=== PATIENT | female | born 1975 | race Caucasian/White ===

== ENCOUNTER → 2019-11-08 10:00 | Outpatient (BNVA) | payer MEDICAID, SELFPAY | PROVIDERS: Family Provider Internal Medicine; PCP Family Medicine; Visit Provider Internal Medicine | DX: E03.9 Hypothyroidism, unspecified (principal); K75.81 Nonalcoholic steatohepatitis (NASH); E78.5 Hyperlipidemia, unspecified; I10 Essential (primary) hypertension; R07.89 Other chest pain; I99.8 Other disorder of circulatory system; I50.42 Chronic combined systolic (congestive) and diastolic (congestive) heart failure; J44.9 Chronic obstructive pulmonary disease, unspecified; K21.9 Gastro-esophageal reflux disease without esophagitis; I73.9 Peripheral vascular disease, unspecified; Z72.0 Tobacco use | CPT/HCPCS: 80053; 80061; 84443; 85025 ==

== ENCOUNTER 2020-04-30 12:25 | Emergency (ER) | payer MEDICAID, SELFPAY ==
[2020-04-30 12:59] VITALS: BP 105/55; PULSE 92; RESP 16; TEMP 36.2; O2SAT 96; BMI 20.2
--- NOTE | 2020-04-30 13:08 | ED_ITS ---
Documented by User: Chucky Lundberg DO 05/06/20 13:04 HPI - GI Bleed General: Chief complaint: GI Bleed Stated complaint: vomiting blood Time Seen by Provider: 04/30/20 13:08 History of Present Illness: HPI Narrative: 45-year-old female presents emergency room complaining of feeling weak she is concerned she may need a blood transfusion. She is previously had multiple blood transfusions secondary to upper GI bleed 3 months ago she had endoscopy done upper GI showed ulcers. She was put on Dexilant she has been taking it regularly since then. Her last transfusion was nearly a year ago. She states she previously had a heart attack and has chronic orthopnea from PND and has not really changed at all recently she denies a chest pain she has some epigastric discomfort but no other abdominal pain. She denies fever sweats chills or respiratory symptoms. MD complaint: gross hematemesis Onset (ago): hour(s) Pain Consistency: constant Severity: moderate Relieving factors: none Exacerbating factors: none Context: history of GI bleed Associated symptoms: Reports abdominal pain; Denies chills, easy bruising, epistaxis, fever(s), headache(s), malaise, nausea, other bleeding, poor appetite, rash, syncope, vomiting or weakness Treatments Prior to Arrival: none Review of Systems Const: Denies: fever(s), chills or malaise ENMT: Denies: epistaxis Card: Denies: syncope Resp: Denies: dyspnea, productive cough or non-productive cough GI: Reports: abdominal pain; Denies: nausea or vomiting : Denies: flank pain, difficulty voiding, dysuria, urinary frequency or urinary urgency Skin/Breast: Denies: rash Neuro: Denies: headache(s) Dev/Lymph: Denies: easy bruising PFS ED PFSH: Medical History Chronic combined systolic (congestive) and diastolic (congestive) heart failure Chronic obstructive pulmonary disease, unspecified Essential (primary) hypertension GERD (gastroesophageal reflux disease) History of angiography X9 History of cerebral artery occlusion History of myocardial infarct at age less than 60 years History of stroke History of TIA (transient ischemic attack) Hyperlipidemia, unspecified Hypothyroidism, unspecified Peripheral vascular disease, unspecified Surgical History History of cardiac catheterization History of coronary artery bypass graft History of esophagogastroduodenoscopy (EGD) Family History Other Cancer Social History Smoking and tobacco status: current every day smoker Second hand smoke exposure: No Alcohol intake: never Substance/Drug Use: never Marital status: History of recent travel: No Current gender identity: Female Physical Exam Const: COMMON NORMALS: no acute distress GENERAL APPEARANCE: cooperative and comfortable ORIENTATION/CONSCIOUSNESS: Yes awake, Yes oriented to person, Yes oriented to place and Yes oriented to time HENMT: COMMON NORMALS: normocephalic, atraumatic and hearing grossly normal bilaterally HEAD & SCALP: normocephalic and atraumatic Eye: COMMON NORMALS: Equal, round and reactive pupils present, EOMs intact bilaterally, conjunctivae normal and no scleral icterus CONJUNCTIVA: Yes conjunctivae normal PUPIL: Yes Equal, round and reactive pupils present Neck/C-Spine: COMMON NORMALS: full ROM, no lymphadenopathy, supple and no JVD Lymph: LYMPHATIC: no lymphadenopathy noted and no lymphedema noted Resp: COMMON NORMALS: normal respiratory effort, No retractions, No use of accessory muscles and clear to auscultation bilaterally AUSCULTATION: clear to auscultation bilaterally Cardio: COMMON NORMALS: no JVD, regular rate, regular rhythm and No murmurs present (Cardio) RATE: regular rate RHYTHM: regular rhythm GI: COMMON NORMALS: Soft to palpation and No hepatosplenomegaly present AUSCULTATION: Yes normoactive bowel sounds PALPATION: Yes Soft to palpation, No Tenderness to palpation present (GI), No Guarding due to palpation present (GI) and Yes No hepatosplenomegaly present Extremity: COMMON NORMALS: normal to inspection, capillary refill normal, no clubbing, cyanosis or edema, no calf tenderness and no pedal edema Neuro: SENSORIUM/ORIENTATION: Yes oriented to person, Yes oriented to place and Yes oriented to time Skin: COMMON NORMALS: no rashes or lesions noted GENERAL SKIN EXAM: no rashes or lesions noted Course Vital Signs: Vital signs: Vital Signs Temperature 97.2 F L 04/30/20 12:59 Pulse Rate 80 04/30/20 19:01 Respiratory Rate 18 04/30/20 19:01 Blood Pressure 107/48 04/30/20 19:01 Pulse Oximetry 96 04/30/20 19:01 MDM - GI Bleed MDM Narrative: Medical decision making narrative: Care turned over to Dr. Be at change of shift Lab Data: Labs: Lab Results 04/30/20 04/30/20 04/30/20 Range/Units 14:15 14:15 14:15 WBC 14.6 H (4.0-10.0) 10^3/ uL RBC 4.40 (4.1-5.3) 10^6/u L Hgb 14.8 (11.5-15.3) g/dL Hct 43.8 (37.0-47.0) % MCV 99.5 H (81-99) fL MCH 33.6 (28.0-34.0) pg MCHC 33.8 (30.0-36.0) g/dL RDW 12.5 (12.1-15.1) % Plt Count 404 H (130-400) 10^3/c mm MPV 9.4 (7.4-10.4) fL Neut % (Auto) 89.4 % Lymph % (Auto) 6.3 % [place] % (Auto) 3.9 % Eos % (Auto) 0.0 % Baso % (Auto) 0.1 % Neut # (Auto) 13.00 H (1.8-7.7) 10^3/u L Lymph # (Auto) 0.9 (0.8-4.8) 10^3/u L [place] # (Auto) 0.6 (0.2-0.9) 10^3/u L Eos # (Auto) 0.0 (0.0-0.8) 10^3/u L Baso # (Auto) 0.0 (0.0-0.1) 10^3/u L Nucleated RBC % (a uto) 0 % Nucleated RBCs # 0.0 /100WBC PT Cancelled INR Cancelled APTT Cancelled Sodium 135 L (136-145) mmol/L Potassium 4.9 (3.5-5.1) mmol/L Chloride 95 L (98-107) mmol/L Carbon Dioxide 25 (22-29) mmol/L Anion Gap 19.9 H (5-19) BUN 36 H (6-20) mg/dL Creatinine 1.6 H (0.5-0.9) mg/dL GFR Calculation 34.6 L (90-130) mL/min Glucose 130 H (65-115) mg/dL Calculated Osmolal ity 279 L (285-295) mOsm/k g Calcium 9.7 (8.5-10.5) mg/dL Total Bilirubin 0.6 (0.15-1.2) mg/dL AST 24 (0-32) U/L ALT 11 (0-33) U/L Alkaline Phosphata se 80 (35-105) IU/L Troponin T Baselin e (0-10) ng/L Troponin T 120 Min [place] (0-10) ng/L Delta Troponin T (0-10) ABS# NT-Pro-B Natriuret Pep 1876 H (0-125) pg/mL Total Protein 8.6 (6.6-8.7) g/dL Albumin 4.9 (3.5-5.2) g/dL Globulin 3.7 (1.3-4.6) g/dL Lipase 18 (13-60) U/L Urine Color (Yellow) Urine Appearance (CLEAR) Urine pH (5-7) Ur Specific Gravit y (1.005-1.030) Urine Protein (Negative) Urine Glucose (UA) (Normal) Urine Ketones (Negative) Urine Blood (Negative) Urine Nitrate (Negative) Urine Bilirubin (NEGATIVE) Urine Urobilinogen (Negative) mg/dL Ur Leukocyte Brie [place]se (Negative) Urine RBC (0-2) /hpf Urine WBC (0-5) /hpf Ur Squamous Epith Cells (0-5) Ur Transition Epit h Cell /hpf Amorphous Sediment Urine Bacteria (NONE) Hyaline Casts 04/30/20 04/30/20 04/30/20 Range/Units 14:15 16:15 16:44 WBC (4.0-10.0) 10^3/ uL RBC (4.1-5.3) 10^6/u L Hgb (11.5-15.3) g/dL Hct (37.0-47.0) % MCV (81-99) fL MCH (28.0-34.0) pg MCHC (30.0-36.0) g/dL RDW (12.1-15.1) % Plt Count (130-400) 10^3/c mm MPV (7.4-10.4) fL Neut % (Auto) % Lymph % (Auto) % [place] % (Auto) % Eos % (Auto) % Baso % (Auto) % Neut # (Auto) (1.8-7.7) 10^3/u L Lymph # (Auto) (0.8-4.8) 10^3/u L [place] # (Auto) (0.2-0.9) 10^3/u L Eos # (Auto) (0.0-0.8) 10^3/u L Baso # (Auto) (0.0-0.1) 10^3/u L Nucleated RBC % (a uto) % Nucleated RBCs # /100WBC PT INR APTT Sodium (136-145) mmol/L Potassium (3.5-5.1) mmol/L Chloride (98-107) mmol/L Carbon Dioxide (22-29) mmol/L Anion Gap (5-19) BUN (6-20) mg/dL Creatinine (0.5-0.9) mg/dL GFR Calculation (90-130) mL/min Glucose (65-115) mg/dL Calculated Osmolal ity (285-295) mOsm/k g Calcium (8.5-10.5) mg/dL Total Bilirubin (0.15-1.2) mg/dL AST (0-32) U/L ALT (0-33) U/L Alkaline Phosphata se (35-105) IU/L Troponin T Baselin e 14 H (0-10) ng/L Troponin T 120 Min [place] 13.03 H (0-10) ng/L Delta Troponin T -0.97 L (0-10) ABS# NT-Pro-B Natriuret Pep (0-125) pg/mL Total Protein (6.6-8.7) g/dL Albumin (3.5-5.2) g/dL Globulin (1.3-4.6) g/dL Lipase (13-60) U/L Urine Color Yellow (Yellow) Urine Appearance Hazy A (CLEAR) Urine pH 5 (5-7) Ur Specific Gravit y 1.020 (1.005-1.030) Urine Protein Neg (Negative) Urine Glucose (UA) Norm (Normal) Urine Ketones Negative (Negative) Urine Blood Neg (Negative) Urine Nitrate Negative (Negative) Urine Bilirubin Neg (NEGATIVE) Urine Urobilinogen Norm (Negative) mg/dL Ur Leukocyte Brie [place]se Negative (Negative) Urine RBC 0-4 H (0-2) /hpf Urine WBC None (0-5) /hpf Ur Squamous Epith Cells 0-4 H (0-5) Ur Transition Epit h Cell 0-4 /hpf Amorphous Sediment Not Reportable Urine Bacteria 1+ H (NONE) Hyaline Casts 55-80 H 04/30/20 Range/Units 18:48 WBC (4.0-10.0) 10^3/ uL RBC (4.1-5.3) 10^6/u L Hgb (11.5-15.3) g/dL Hct (37.0-47.0) % MCV (81-99) fL MCH (28.0-34.0) pg MCHC (30.0-36.0) g/dL RDW (12.1-15.1) % Plt Count (130-400) 10^3/c mm MPV (7.4-10.4) fL Neut % (Auto) % Lymph % (Auto) % [place] % (Auto) % Eos % (Auto) % Baso % (Auto) % Neut # (Auto) (1.8-7.7) 10^3/u L Lymph # (Auto) (0.8-4.8) 10^3/u L [place] # (Auto) (0.2-0.9) 10^3/u L Eos # (Auto) (0.0-0.8) 10^3/u L Baso # (Auto) (0.0-0.1) 10^3/u L Nucleated RBC % (a uto) % Nucleated RBCs # /100WBC PT 13.70 INR 1.02 APTT 30.7 Sodium (136-145) mmol/L Potassium (3.5-5.1) mmol/L Chloride (98-107) mmol/L Carbon Dioxide (22-29) mmol/L Anion Gap (5-19) BUN (6-20) mg/dL Creatinine (0.5-0.9) mg/dL GFR Calculation (90-130) mL/min Glucose (65-115) mg/dL Calculated Osmolal ity (285-295) mOsm/k g Calcium (8.5-10.5) mg/dL Total Bilirubin (0.15-1.2) mg/dL AST (0-32) U/L ALT (0-33) U/L Alkaline Phosphata se (35-105) IU/L Troponin T Baselin e (0-10) ng/L Troponin T 120 Min [place] (0-10) ng/L Delta Troponin T (0-10) ABS# NT-Pro-B Natriuret Pep (0-125) pg/mL Total Protein (6.6-8.7) g/dL Albumin (3.5-5.2) g/dL Globulin (1.3-4.6) g/dL Lipase (13-60) U/L Urine Color (Yellow) Urine Appearance (CLEAR) Urine pH (5-7) Ur Specific Gravit y (1.005-1.030) Urine Protein (Negative) Urine Glucose (UA) (Normal) Urine Ketones (Negative) Urine Blood (Negative) Urine Nitrate (Negative) Urine Bilirubin (NEGATIVE) Urine Urobilinogen (Negative) mg/dL Ur Leukocyte Brie ase (Negative) Urine RBC (0-2) /hpf Urine WBC (0-5) /hpf Ur Squamous Epith Cells (0-5) Ur Transition Epit h Cell /hpf Amorphous Sediment Urine Bacteria (NONE) Hyaline Casts Discharge Plan Discharge Patient Disposition: Home Clinical Impression: Upper gastrointestinal hemorrhage Abdominal pain Qualifiers: Abdominal location: epigastric Qualified Code(s): R10.13 - Epigastric pain Condition: Stable Prescriptions: New Zofran 4 mg tablet 4 mg PO Q6H PRN (Reason: nausea and vomiting) Qty: 20 RF: 0 No Action amlodipine 2.5 mg tablet 2.5 mg PO DAILY Qty: 90 RF: 3 Repatha SureClick 140 mg/mL pen injector 140 mg SUBCUT .every 14 days Qty: 2 RF: 0 lidocaine 5 % adhesive patch,medicated 1 patch TOPICAL DAILY Qty: 30 RF: 0 cyclobenzaprine 10 mg tablet 10 mg PO TID MDD 3 PRN (Reason: muscle spasm) Qty: 90 RF: 1 magnesium 200 mg tablet 200 mg PO DAILY Qty: 90 RF: 3 nitroglycerin 0.4 mg tablet, sublingual 0.4 mg SUBLINGUAL Q5M PRN (Reason: chest pain) Qty: 30 RF: 3 cholecalciferol (vitamin D3) 1,250 mcg (50,000 unit) capsule 50,000 unit PO .COMPLEX 30 Days Qty: 4 RF: 3 lisinopril 5 mg tablet 5 mg PO BID Qty: 60 RF: 3 folic acid 1 mg tablet 1 mg PO DAILY Qty: 30 RF: 3 ferrous sulfate 325 mg (65 mg iron) tablet 325 mg PO ONCE Qty: 30 RF: 3 loratadine 10 mg tablet 10 mg PO DAILY Qty: 30 RF: 3 isosorbide mononitrate 60 mg tablet extended release 24 hr 60 mg PO QAM MDD 1 30 Days Qty: 30 RF: 3 levothyroxine 100 mcg capsule 100 mcg PO DAILY 30 Days Qty: 30 RF: 3 furosemide 20 mg tablet 20 mg PO BID Qty: 60 RF: 3 fenofibrate nanocrystallized 145 mg tablet 145 mg PO DAILY 30 Days Qty: 30 RF: 3 montelukast 10 mg tablet 10 mg PO DAILY MDD 1 Qty: 30 RF: 3 Percocet 10-325 mg Tablet 1 tab PO Q4H PRN (Reason: Pain) RF: 0 clopidogrel 75 mg tablet 75 mg PO DAILY MDD 1 RF: 0 Dexilant 60 mg capsule,biphase delayed releas 60 mg PO DAILY RF: 0 metoprolol succinate 200 mg capsule,sprinkle,ER 24hr 100 mg PO BID RF: 0 Discharge Orders: Discharge Order (Routine); Ordered 04/30/20 Ordered By: Judy Hayden Referrals: Adam Mohr MD [Physician] - 1-3 days (Call Dr. Mohr's office for an appointment to be seen in the next 1 to 2 days for recheck.) Ambrocio Vicente MD [Primary Care Provider] - Discharge Diet: Advance as tolerated and Clear Liquid Discharge Activity: Increase activity as tolerated Patient Instructions: Abdominal Pain (ED) Activity Restrictions/Additional Instructions: Please return to the ER immediately for any of the signs or symptoms listed on your discharge instruction sheets, worsening/changing of your symptoms, you are not getting better as quickly as expected, or for ANY other cause or concerns. Follow a clear liquid diet and take your medicines as I have prescribed. Be certain to follow-up with Dr. Mohr tomorrow or . If for any reason you are unable to be seen by him return here to the ER for recheck. Discharge Date/Time: 04/30/20 19:02 Sign Out Sign Out Data: Patient Sign Out occurred on 04/30/20 at 18:05. Patient's care was discussed, and care was transferred from to Judy Hayden. Coding Level of Care Code ED Antenna Machine Operator for Chg Fwd Exam Comprehensive Documented by User: Judy Hayden 04/30/20 19:16 HPI - GI Bleed General: Chief complaint: GI Bleed Stated complaint: vomiting blood Time Seen by Provider: 04/30/20 13:08 PFSH ED PFSH: Medical History Chronic combined systolic (congestive) and diastolic (congestive) heart failure Chronic obstructive pulmonary disease, unspecified Essential (primary) hypertension GERD (gastroesophageal reflux disease) History of angiography X9 History of cerebral artery occlusion History of myocardial infarct at age less than 60 years History of stroke History of TIA (transient ischemic attack) Hyperlipidemia, unspecified Hypothyroidism, unspecified Peripheral vascular disease, unspecified Surgical History History of cardiac catheterization History of coronary artery bypass graft History of esophagogastroduodenoscopy (EGD) Family History Other Cancer Social History Smoking and tobacco status: current every day smoker Second hand smoke exposure: No Alcohol intake: never Substance/Drug Use: never Marital status: History of recent travel: No Current gender identity: Female Course Vital Signs: Vital signs: Vital Signs Temperature 97.2 F L 04/30/20 12:59 Pulse Rate 80 04/30/20 19:01 Respiratory Rate 18 04/30/20 19:01 Blood Pressure 107/48 04/30/20 19:01 Pulse Oximetry 96 04/30/20 19:01 MDM - GI Bleed MDM Narrative: Medical decision making narrative: Reji is a nice 45-year-old female signed out to me from Dr. Lundberg. Please see his note for his history, physical exam and medical decision-making notes. Patient has not had any hematic emesis here. By report the patient has not had a melanotic stools. Hem oglobin is 14. Patient appears mildly dehydrated and I will give her a liter of normal saline before leaving. She does not want to stay for this but after some insistence by myself and her daughter she agrees to stay. Her CT scan is unremarkable. She states that she can easily get an appointment with Dr. Mohr and wants to do so tomorrow. Her pain is more lower epigastric and periumbilical in location. She has not had any chest pain. There is no sign of peritonitis on exam and the patient is at this time is asking to go home. She agrees to return should her symptoms change or worsen otherwise she will follow- up with Dr. Mohr. I will give her Zofran at home so she can tolerate eating better. Patient has no other requests and agrees to follow-up as directed or return if she cannot get into see him. Lab Data: Attestation: I reviewed the patient's lab results. Labs: Lab Results 04/30/20 04/30/20 04/30/20 Range/Units 14:15 14:15 14:15 WBC 14.6 H (4.0-10.0) 10^3/ uL RBC 4.40 (4.1-5.3) 10^6/u L Hgb 14.8 (11.5-15.3) g/dL Hct 43.8 (37.0-47.0) % MCV 99.5 H (81-99) fL MCH 33.6 (28.0-34.0) pg MCHC 33.8 (30.0-36.0) g/dL RDW 12.5 (12.1-15.1) % Plt Count 404 H (130-400) 10^3/c mm MPV 9.4 (7.4-10.4) fL Neut % (Auto) 89.4 % Lymph % (Auto) 6.3 % [place] % (Auto) 3.9 % Eos % (Auto) 0.0 % Baso % (Auto) 0.1 % Neut # (Auto) 13.00 H (1.8-7.7) 10^3/u L Lymph # (Auto) 0.9 (0.8-4.8) 10^3/u L [place] # (Auto) 0.6 (0.2-0.9) 10^3/u L Eos # (Auto) 0.0 (0.0-0.8) 10^3/u L Baso # (Auto) 0.0 (0.0-0.1) 10^3/u L Nucleated RBC % (a uto) 0 % Nucleated RBCs # 0.0 /100WBC PT Cancelled INR Cancelled APTT Cancelled Sodium 135 L (136-145) mmol/L Potassium 4.9 (3.5-5.1) mmol/L Chloride 95 L (98-107) mmol/L Carbon Dioxide 25 (22-29) mmol/L Anion Gap 19.9 H (5-19) BUN 36 H (6-20) mg/dL Creatinine 1.6 H (0.5-0.9) mg/dL GFR Calculation 34.6 L (90-130) mL/min Glucose 130 H (65-115) mg/dL Calculated Osmolal ity 279 L (285-295) mOsm/k g Calcium 9.7 (8.5-10.5) mg/dL Total Bilirubin 0.6 (0.15-1.2) mg/dL AST 24 (0-32) U/L ALT 11 (0-33) U/L Alkaline Phosphata se 80 (35-105) IU/L Troponin T Baselin e (0-10) ng/L Troponin T 120 Min [place] (0-10) ng/L Delta Troponin T (0-10) ABS# NT-Pro-B Natriuret Pep 1876 H (0-125) pg/mL Total Protein 8.6 (6.6-8.7) g/dL Albumin 4.9 (3.5-5.2) g/dL Globulin 3.7 (1.3-4.6) g/dL Lipase 18 (13-60) U/L Urine Color (Yellow) Urine Appearance (CLEAR) Urine pH (5-7) Ur Specific Gravit y (1.005-1.030) Urine Protein (Negative) Urine Glucose (UA) (Normal) Urine Ketones (Negative) Urine Blood (Negative) Urine Nitrate (Negative) Urine Bilirubin (NEGATIVE) Urine Urobilinogen (Negative) mg/dL Ur Leukocyte Brie [place]se (Negative) Urine RBC (0-2) /hpf Urine WBC (0-5) /hpf Ur Squamous Epith Cells (0-5) Ur Transition Epit h Cell /hpf Amorphous Sediment Urine Bacteria (NONE) Hyaline Casts 04/30/20 04/30/20 04/30/20 Range/Units 14:15 16:15 16:44 WBC (4.0-10.0) 10^3/ uL RBC (4.1-5.3) 10^6/u L Hgb (11.5-15.3) g/dL Hct (37.0-47.0) % MCV (81-99) fL MCH (28.0-34.0) pg MCHC (30.0-36.0) g/dL RDW (12.1-15.1) % Plt Count (130-400) 10^3/c mm MPV (7.4-10.4) fL Neut % (Auto) % Lymph % (Auto) % [place] % (Auto) % Eos % (Auto) % Baso % (Auto) % Neut # (Auto) (1.8-7.7) 10^3/u L Lymph # (Auto) (0.8-4.8) 10^3/u L [place] # (Auto) (0.2-0.9) 10^3/u L Eos # (Auto) (0.0-0.8) 10^3/u L Baso # (Auto) (0.0-0.1) 10^3/u L Nucleated RBC % (a uto) % Nucleated RBCs # /100WBC PT INR APTT Sodium (136-145) mmol/L Potassium (3.5-5.1) mmol/L Chloride (98-107) mmol/L Carbon Dioxide (22-29) mmol/L Anion Gap (5-19) BUN (6-20) mg/dL Creatinine (0.5-0.9) mg/dL GFR Calculation (90-130) mL/min Glucose (65-115) mg/dL Calculated Osmolal ity (285-295) mOsm/k g Calcium (8.5-10.5) mg/dL Total Bilirubin (0.15-1.2) mg/dL AST (0-32) U/L ALT (0-33) U/L Alkaline Phosphata se (35-105) IU/L Troponin T Baselin e 14 H (0-10) ng/L Troponin T 120 Min [place] 13.03 H (0-10) ng/L Delta Troponin T -0.97 L (0-10) ABS# NT-Pro-B Natriuret Pep (0-125) pg/mL Total Protein (6.6-8.7) g/dL Albumin (3.5-5.2) g/dL Globulin (1.3-4.6) g/dL Lipase (13-60) U/L Urine Color Yellow (Yellow) Urine Appearance Hazy A (CLEAR) Urine pH 5 (5-7) Ur Specific Gravit y 1.020 (1.005-1.030) Urine Protein Neg (Negative) Urine Glucose (UA) Norm (Normal) Urine Ketones Negative (Negative) Urine Blood Neg (Negative) Urine Nitrate Negative (Negative) Urine Bilirubin Neg (NEGATIVE) Urine Urobilinogen Norm (Negative) mg/dL Ur Leukocyte Brie [place] Negative (Negative) Urine RBC 0-4 H (0-2) /hpf Urine WBC None (0-5) /hpf Ur Squamous Epith Cells 0-4 H (0-5) Ur Transition Epit h Cell 0-4 /hpf Amorphous Sediment Not Reportable Urine Bacteria 1+ H (NONE) Hyaline Casts 55-80 H 04/30/20 Range/Units 18:48 WBC (4.0-10.0) 10^3/ uL RBC (4.1-5.3) 10^6/u L Hgb (11.5-15.3) g/dL Hct (37.0-47.0) % MCV (81-99) fL MCH (28.0-34.0) pg MCHC (30.0-36.0) g/dL RDW (12.1-15.1) % Plt Count (130-400) 10^3/c mm MPV (7.4-10.4) fL Neut % (Auto) % Lymph % (Auto) % [place] % (Auto) % Eos % (Auto) % Baso % (Auto) % Neut # (Auto) (1.8-7.7) 10^3/u L Lymph # (Auto) (0.8-4.8) 10^3/u L [place] # (Auto) (0.2-0.9) 10^3/u L Eos # (Auto) (0.0-0.8) 10^3/u L Baso # (Auto) (0.0-0.1) 10^3/u L Nucleated RBC % (a uto) % Nucleated RBCs # /100WBC PT 13.70 INR 1.02 APTT 30.7 Sodium (136-145) mmol/L Potassium (3.5-5.1) mmol/L Chloride (98-107) mmol/L Carbon Dioxide (22-29) mmol/L Anion Gap (5-19) BUN (6-20) mg/dL Creatinine (0.5-0.9) mg/dL GFR Calculation (90-130) mL/min Glucose (65-115) mg/dL Calculated Osmolal ity (285-295) mOsm/k g Calcium (8.5-10.5) mg/dL Total Bilirubin (0.15-1.2) mg/dL AST (0-32) U/L ALT (0-33) U/L Alkaline Phosphata se (35-105) IU/L Troponin T Baselin e (0-10) ng/L Troponin T 120 Min [place] (0-10) ng/L Delta Troponin T (0-10) ABS# NT-Pro-B Natriuret Pep (0-125) pg/mL Total Protein (6.6-8.7) g/dL Albumin (3.5-5.2) g/dL Globulin (1.3-4.6) g/dL Lipase (13-60) U/L Urine Color (Yellow) Urine Appearance (CLEAR) Urine pH (5-7) Ur Specific Gravit y (1.005-1.030) Urine Protein (Negative) Urine Glucose (UA) (Normal) Urine Ketones (Negative) Urine Blood (Negative) Urine Nitrate (Negative) Urine Bilirubin (NEGATIVE) Urine Urobilinogen (Negative) mg/dL Ur Leukocyte Brie ase (Negative) Urine RBC (0-2) /hpf Urine WBC (0-5) /hpf Ur Squamous Epith Cells (0-5) Ur Transition Epit h Cell /hpf Amorphous Sediment Urine Bacteria (NONE) Hyaline Casts Imaging Data^: CT Abd/Pel: Radiologist's impression: [address] [address] [address] Scan Report Signed Patient: Reji Broussard IUnit #: [id number] : 1975Acct#:[id number] Age/Sex: 45 / FADM Date: 04/30/20 Loc: ERRoom/Bed: Attending Dr: Ordering Provider/Ordering MD: Chucky Lundberg DO Date of Service: 04/30/20 Procedure(s): CT abdomen pelvis w con* [id number] Accession Number(s): [id number] Report Number: [id number] PROCEDURE INFORMATION: Exam: CT Abdomen And Pelvis With Contrast Exam date and time: 04/30/2020 3:06 PM Age: 45 years old Clinical indication: Nausea and vomiting; Abdominal pain; Prior surgery; Surgery type: Bypass, egd; Additional info: Abd pain TECHNIQUE: Imaging protocol: Computed tomography of the abdomen and pelvis with intravenous contrast. Radiation optimization: All CT scans at this facility use at least one of these dose optimization techniques: automated exposure control; mA and/or kV adjustment per patient size (includes targeted exams where dose is matched to clinical indication); or iterative reconstruction. Contrast material: VISI 320; Contrast volume: 75 ml; Contrast route: INTRAVENOUS (IV); COMPARISON: No relevant prior studies available. RADIATION DOSE METRICS: Total DLP (mGy-cm): 324.82 FINDINGS: Liver: No mass. Gallbladder and bile ducts: No gallstones. Minimal nonspecific gallbladder wall thickening. No ductal dilation. Pancreas: Normal. No ductal dilation. Spleen: Normal. No splenomegaly. Adrenals: Normal. No mass. Kidneys and ureters: No calculus or hydronephrosis. No mass. Stomach and bowel: No acute findings. No obstruction. No mucosal thickening. Appendix: No evidence of appendicitis. Intraperitoneal space: Unremarkable. No free air. No significant fluid collection. Vasculature: No abdominal aortic aneurysm. Vascular calcifications. Lymph nodes: No significant adenopathy. Bladder: Unremarkable as visualized. Reproductive: Unremarkable as visualized. Bones/joints: No acute findings. Sternotomy. Soft tissues: Unremarkable. CT/CT abdomen pelvis w con* [id number] IMPRESSION: No acute findings. Radiation Dose CTDIVOL = (mGy): DLP = 324.82 (mGy-cm) Dictated By:Hitesh Cai MD Signed By:Hitesh Cai MDSigned Date/Time:04/30/201757 DD/ 56 EKG Data^: EKG 1: Attestation: I personally reviewed and interpreted this EKG as follows: EKG interpretation date: 04/30/20 EKG interpretation time: 14:01 Interpretation: Normal sinus rhythm at 83 beats a minute, nonspecific ST-T wave changes similar to previous. EKG 2: Attestation: I personally reviewed and interpreted this EKG as follows: EKG interpretation date: 04/30/20 EKG interpretation time: 16:50 Interpretation: Normal sinus rhythm at 83 beats a minute, nonspecific ST and T wave changes similar to previous. Discharge Plan Discharge Patient Disposition: Home Clinical Impression: Upper gastrointestinal hemorrhage Abdominal pain Qualifiers: Abdominal location: epigastric Qualified Code(s): R10.13 - Epigastric pain Condition: Stable Prescriptions: New Zofran 4 mg tablet 4 mg PO Q6H PRN (Reason: nausea and vomiting) Qty: 20 RF: 0 No Action amlodipine 2.5 mg tablet 2.5 mg PO DAILY Qty: 90 RF: 3 Repatha SureClick 140 mg/mL pen injector 140 mg SUBCUT .every 14 days Qty: 2 RF: 0 lidocaine 5 % adhesive patch,medicated 1 patch TOPICAL DAILY Qty: 30 RF: 0 cyclobenzaprine 10 mg tablet 10 mg PO TID MDD 3 PRN (Reason: muscle spasm) Qty: 90 RF: 1 magnesium 200 mg tablet 200 mg PO DAILY Qty: 90 RF: 3 nitroglycerin 0.4 mg tablet, sublingual 0.4 mg SUBLINGUAL Q5M PRN (Reason: chest pain) Qty: 30 RF: 3 cholecalciferol (vitamin D3) 1,250 mcg (50,000 unit) capsule 50,000 unit PO .COMPLEX 30 Days Qty: 4 RF: 3 lisinopril 5 mg tablet 5 mg PO BID Qty: 60 RF: 3 folic acid 1 mg tablet 1 mg PO DAILY Qty: 30 RF: 3 ferrous sulfate 325 mg (65 mg iron) tablet 325 mg PO ONCE Qty: 30 RF: 3 loratadine 10 mg tablet 10 mg PO DAILY Qty: 30 RF: 3 isosorbide mononitrate 60 mg tablet extended release 24 hr 60 mg PO QAM MDD 1 30 Days Qty: 30 RF: 3 levothyroxine 100 mcg capsule 100 mcg PO DAILY 30 Days Qty: 30 RF: 3 furosemide 20 mg tablet 20 mg PO BID Qty: 60 RF: 3 fenofibrate nanocrystallized 145 mg tablet 145 mg PO DAILY 30 Days Qty: 30 RF: 3 montelukast 10 mg tablet 10 mg PO DAILY MDD 1 Qty: 30 RF: 3 Percocet 10-325 mg Tablet 1 tab PO Q4H PRN (Reason: Pain) RF: 0 clopidogrel 75 mg tablet 75 mg PO DAILY MDD 1 RF: 0 Dexilant 60 mg capsule,biphase delayed releas 60 mg PO DAILY RF: 0 metoprolol succinate 200 mg capsule,sprinkle,ER 24hr 100 mg PO BID RF: 0 Discharge Orders: Discharge Order (Routine); Ordered 04/30/20 Ordered By: Judy Hayden Referrals: Adam Mohr MD [Physician] - 1-3 days (Call Dr. Mohr's office for an appointment to be seen in the next 1 to 2 days for recheck.) Ambrocio Vicente MD [Primary Care Provider] - Discharge Diet: Advance as tolerated and Clear Liquid Discharge Activity: Increase activity as tolerated Patient Instructions: Abdominal Pain (ED) Activity Restrictions/Additional Instructions: Please return to the ER immediately for any of the signs or symptoms listed on your discharge instruction sheets, worsening/changing of your symptoms, you are not getting better as quickly as expected, or for ANY other cause or concerns. Follow a clear liquid diet and take your medicines as I have prescribed. Be certain to follow-up with Dr. Mohr tomorrow or . If for any reason you are unable to be seen by him return here to the ER for recheck. Discharge Date/Time: 04/30/20 19:02 Sign Out Sign Out Data: Patient Sign Out occurred on 04/30/20 at 18:05. Patient's care was discussed, and care was transferred from to Judy Hayden. Coding Level of Care Code ED Antenna Machine Operator for Chg Fwd Exam Comprehensive
--- NOTE | 2020-04-30 13:44 | XRR_ITS ---
PROCEDURE INFORMATION: Exam: XR Chest, 1 View Exam date and time: 04/30/2020 1:57 PM Age: 45 years old Clinical indication: Cough and dyspnea; Prior surgery; Surgery type: Triple bypass 2014; Patient HX: Vomiting; Additional info: Dyspnea/cough TECHNIQUE: Imaging protocol: XR of the chest Views: 1 view. COMPARISON: CT chest con [id number] 11/08/2017 3:10 PM FINDINGS: Lungs: No CHF. No consolidation. Pleural space: Unremarkable. No pleural effusion. No pneumothorax. Heart/Mediastinum: CABG. No cardiomegaly. Bones/joints: No acute findings. Sternotomy. XR/XR chest 1V portable [id number] IMPRESSION: No acute findings.
--- NOTE | 2020-04-30 13:45 | ECG_ITS ---
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 Measurements Intervals [place] Rate: 83 P: 69 MT: 154 QRS: 85 QRSD: 93 T: 98 QT: 382 QTc: 450 Interpretive Statements SINUS RHYTHM RIGHT ATRIAL ENLARGEMENT [0.3mV P WAVE] LEFT ATRIAL ENLARGEMENT [-0.15mV P WAVE IN V1/V2] NONSPECIFIC ST & T-WAVE ABNORMALITY Compared to ECG 03/17/2019 09:30:52 Atrial abnormality now present Sinus arrhythmia no longer present T-wave abnormality still present Electronically Signed On 05-01-2020 0:29:10 CDT by Henrry Bower M.D. [id number]
[2020-04-30 14:23] LABS: Basophils % 0.1 %; Hematocrit 43.8 % (37.0-47.0); Hemoglobin 14.8 g/dL (11.5-15.3); Lymphocytes # 0.9 10^3/uL (0.8-4.8); Lymphocytes % 6.3 %; Mean Corpuscular HGB Conc 33.8 g/dL (30.0-36.0); Mean Corpuscular Hemoglobin 33.6 pg (28.0-34.0); Mean Corpuscular Volume 99.5 fL (81-99); Mean Platelet Volume 9.4 fL (7.4-10.4); Monocytes # 0.6 10^3/uL (0.2-0.9); Monocytes % 3.9 %; Neutrophils % 89.4 %; Nucleated Red Blood Cells % 0 %; Platelet Count 404 10^3/cmm (130-400); Red Cell Distribution Width 12.5 % (12.1-15.1); White Blood Count 14.6 10^3/uL (4.0-10.0)
[2020-04-30 14:43] LABS: Troponin(5th) Baseline 14 ng/L (0-10)
--- NOTE | 2020-04-30 14:45 | CTR_ITS ---
PROCEDURE INFORMATION: Exam: CT Abdomen And Pelvis With Contrast Exam date and time: 04/30/2020 3:06 PM Age: 45 years old Clinical indication: Nausea and vomiting; Abdominal pain; Prior surgery; Surgery type: Bypass, egd; Additional info: Abd pain TECHNIQUE: Imaging protocol: Computed tomography of the abdomen and pelvis with intravenous contrast. Radiation optimization: All CT scans at this facility use at least one of these dose optimization techniques: automated exposure control; mA and/or kV adjustment per patient size (includes targeted exams where dose is matched to clinical indication); or iterative reconstruction. Contrast material: VISI 320; Contrast volume: 75 ml; Contrast route: INTRAVENOUS (IV); COMPARISON: No relevant prior studies available. RADIATION DOSE METRICS: Total DLP (mGy-cm): 324.82 FINDINGS: Liver: No mass. Gallbladder and bile ducts: No gallstones. Minimal nonspecific gallbladder wall thickening. No ductal dilation. Pancreas: Normal. No ductal dilation. Spleen: Normal. No splenomegaly. Adrenals: Normal. No mass. Kidneys and ureters: No calculus or hydronephrosis. No mass. Stomach and bowel: No acute findings. No obstruction. No mucosal thickening. Appendix: No evidence of appendicitis. Intraperitoneal space: Unremarkable. No free air. No significant fluid collection. Vasculature: No abdominal aortic aneurysm. Vascular calcifications. Lymph nodes: No significant adenopathy. Bladder: Unremarkable as visualized. Reproductive: Unremarkable as visualized. Bones/joints: No acute findings. Sternotomy. Soft tissues: Unremarkable. CT/CT abdomen pelvis w con* [id number] IMPRESSION: No acute findings. Radiation Dose CTDIVOL = (mGy): DLP = 324.82 (mGy-cm)
[2020-04-30 14:53] LABS: Alanine Aminotransferase 11 U/L (0-33); Albumin Level 4.9 g/dL (3.5-5.2); Alkaline Phosphatase 80 IU/L (35-105); Anion Gap 19.9 (5-19); Aspartate Amino Transferase 24 U/L (0-32); Blood Urea Nitrogen 36 mg/dL (6-20); Calcium 9.7 mg/dL (8.5-10.5); Carbon Dioxide 25 mmol/L (22-29); Chloride 95 mmol/L (98-107); Globulin 3.7 g/dL (1.3-4.6); Glomerular Filtration Rate 34.6 mL/min (90-130); Glucose 130 mg/dL (65-115); Lipase 18 U/L (13-60); NT Pro B Type Natriuretic Pept 1876 pg/mL (0-125); Osmolality Calculated 279 mOsm/kg (285-295); Potassium 4.9 mmol/L (3.5-5.1); Sodium 135 mmol/L (136-145); Total Bilirubin 0.6 mg/dL (0.15-1.2); Total Protein 8.6 g/dL (6.6-8.7)
[2020-04-30] MEDS: ondansetron 2 mg/ML SDV 2 mL 4 MG IVP (15:22)
[2020-04-30] MEDS: hydrocortisone inj 100 MG in sodium chloride 0.9% (100 ml) 100 ML 200 MG IV (16:20)
[2020-04-30] MEDS: diphenhydrAMINE 50 mg/mL SDV 1mL IVP (16:20)
[2020-04-30 16:38] LABS: Troponin 5 2HR 13.03 ng/L (0-10)
[2020-04-30 16:39] LABS: Troponin 5 2HR Delta -0.97 ABS# (0-10)
[2020-04-30 16:56] LABS: Add Urine Microscopic? YES; Bilirubin Urine Neg (NEGATIVE); Blood Urine Neg (Negative); Glucose Urine UA Norm (Normal); Ketones Urine Negative (Negative); Leukocyte Esterase Urine Negative (Negative); Nitrate Urine Negative (Negative); Protein Urine Neg (Negative); Urine Appearance Hazy (CLEAR); Urine Color Yellow (Yellow); Urobilinogen Urine Norm (Negative); pH Urine 5 (5-7)
[2020-04-30 17:06] LABS: Hyaline Casts Urine 55-80
[2020-04-30 17:07] LABS: Add Urine Culture? No; Bacteria Urine 1+; RBC Urine 0-4 /hpf (0-2); Squamous Epithelial Cell Urine 0-4 (0-5); Transitional Epi Cells Urine 0-4 /hpf
[2020-04-30] MEDS: iodixanol 320 mg/mL 100mL Btl IV (17:30)
[2020-04-30] MEDS: lidocaine 2% viscous 15 ML, aluminum-mag hydrox-simethicon 30 ML, sucralfate oral liq 1 GM PO (18:05)
[2020-04-30 19:01] VITALS: BP 107/48; PULSE 80; RESP 18; O2SAT 96
[2020-04-30 19:20] LABS: INR 1.02 (0.8-1.2)
[2020-04-30 19:21] LABS: Partial Thromboplastin Time 30.7 SECONDS (23.9-36.7)
== END 2020-04-30 19:02 | disposition home or self-care (01) ==
PROVIDERS: Family Medicine; Emergency Provider Emergency Medicine; PCP Family Medicine
DX: K92.2 Gastrointestinal hemorrhage, unspecified (principal); R10.13 Epigastric pain; Z79.02 Long term (current) use of antithrombotics/antiplatelets; J44.9 Chronic obstructive pulmonary disease, unspecified; I11.0 Hypertensive heart disease with heart failure; I50.42 Chronic combined systolic (congestive) and diastolic (congestive) heart failure; I25.2 Old myocardial infarction; Z86.73 Personal history of transient ischemic attack (TIA), and cerebral infarction without residual deficits; E78.5 Hyperlipidemia, unspecified; Z95.1 Presence of aortocoronary bypass graft; F17.210 Nicotine dependence, cigarettes, uncomplicated
CPT/HCPCS: 12345; 36415; 71045; 74177; 80053; 81001; 83690; 83880; 84484; 85025; 85610; 85730; 93005; 96374; 96375; 99283; 99284; J1200; J1720; J2405; Q9967

== ENCOUNTER 2020-07-25 11:54 | Outpatient (CLI) | payer MEDICAID, SELFPAY ==
[2020-07-25 12:51] LABS: Alanine Aminotransferase 15 U/L (0-33); Albumin Level 4.4 g/dL (3.5-5.2); Alkaline Phosphatase 85 IU/L (35-105); Anion Gap 16.3 (5-19); Aspartate Amino Transferase 24 U/L (0-32); Blood Urea Nitrogen 24 mg/dL (6-20); Carbon Dioxide 26 mmol/L (22-29); Chloride 102 mmol/L (98-107); Chol HDL Ratio 4.47 mg/dL (0.0-4.40); Cholesterol 161 mg/dL (0-200); Globulin 3.2 g/dL (1.3-4.6); Glomerular Filtration Rate 43.9 mL/min (90-130); Glucose 88 mg/dL (65-115); HDL Cholesterol 36 mg/dL (60-100); LDL Cholesterol Calculated 75 mg/dL (50-129); LDL HDL Ratio 2.08 RATIO (0.00-3.22); Osmolality Calculated 291 mOsm/kg (285-295); Potassium 5.3 mmol/L (3.5-5.1); Sodium 139 mmol/L (136-145); Total Bilirubin 0.3 mg/dL (0.15-1.2); Total Protein 7.6 g/dL (6.6-8.7); Triglycerides 249 mg/dL (0-150)
== END 2020-07-25 11:55 | disposition home or self-care (01) ==
PROVIDERS: Pediatrics; PCP Family Medicine; Visit Provider Internal Medicine Cardiovascular Disease
DX: E78.5 Hyperlipidemia, unspecified (principal)
CPT/HCPCS: 80053; 80061

== ENCOUNTER 2020-07-31 10:44 | Outpatient (CLI) | payer MEDICAID, SELFPAY ==
--- NOTE | 2020-07-31 10:48 | XR_ITS ---
WS: [id number] Left foot, 3 views, 07/31/2020 Clinical Data: M79.672 - Pain in left foot Comparison: None. Findings: There is a fracture of the base of the left fifth metatarsal tarsal which shows evidence of partial h ealing. No other fractures are seen. Soft tissues are normal. XR/XR foot LT min 3V* [id number] Impression: Fracture of the base of the left fifth metatarsal.
== END 2020-07-31 10:45 | disposition home or self-care (01) ==
LOC: RAD 10:47
PROVIDERS: PCP Family Medicine; Visit Provider Nurse Practitioner Family
DX: S92.352A Displaced fracture of fifth metatarsal bone, left foot, initial encounter for closed fracture (principal); X58.XXXA Exposure to other specified factors, initial encounter
CPT/HCPCS: 73630

== ENCOUNTER → 2020-08-26 11:40 | Outpatient (BNVA) | payer MEDICAID, SELFPAY | PROVIDERS: PCP Family Medicine; Visit Provider Podiatrist Foot & Ankle Surgery | DX: S92.352G Displaced fracture of fifth metatarsal bone, left foot, subsequent encounter for fracture with delayed healing (principal); V89.9XXD Person injured in unspecified vehicle accident, subsequent encounter | CPT/HCPCS: 73630 ==

== ENCOUNTER → 2020-09-16 11:18 | Outpatient (BNVA) | payer MEDICAID, SELFPAY | PROVIDERS: PCP Internal Medicine; Visit Provider Podiatrist Foot & Ankle Surgery | DX: Z47.89 Encounter for other orthopedic aftercare (principal); S92.309D Fracture of unspecified metatarsal bone(s), unspecified foot, subsequent encounter for fracture with routine healing; X58.XXXD Exposure to other specified factors, subsequent encounter | CPT/HCPCS: 73630 ==

== ENCOUNTER 2021-03-03 08:44 | Outpatient (CLI) | payer MEDICAID, SELFPAY ==
--- NOTE | 2021-03-03 08:45 | US_ITS ---
WS: [id number] ULTRASOUND ABDOMEN LIMITED CLINICAL INFORMATION: post prandial abdominal pain COMPARISON: None. FINDINGS: Liver Size: Normal. Craniocaudal length: 15.6 cm. Echogenicity: Normal. Surface nodularity: None. Mass (size and location): None. Bile ducts Intrahepatic ducts: Normal. Common bile duct diameter: 0.4 cm. Gallbladder Cholelithiasis and sludge Gallstones: Present Gallbladder sludge: Present Gallbladder wall thickenin.5 mm Pericholecystic fluid: None. Sonographic Kimbrough sign: Absent. Pancreas Normal as visualized. Right kidney: Normal. Hydronephrosis: None. Size: 10.9 cm x 5.7 cm x 4.1 cm. Abdominal aorta and IVC Visualized portions are normal. Ascites: None. US/US gall bladder [id number] IMPRESSION: 1. Normal liver. 2. Cholelithiasis and gallbladder sludge. No pericholecystic fluid or edema. N ormal common bile duct. Minimal gallbladder wall thickening. 3. No hydronephrosis in right kidney.
== END 2021-03-03 08:45 | disposition home or self-care (01) ==
LOC: RAD 08:46
PROVIDERS: PCP Internal Medicine; Visit Provider Internal Medicine
DX: R10.11 Right upper quadrant pain (principal); R10.13 Epigastric pain; K80.20 Calculus of gallbladder without cholecystitis without obstruction
CPT/HCPCS: 76705

== ENCOUNTER → 2021-03-11 09:30 | Outpatient (BNVA) | payer MEDICAID, SELFPAY | PROVIDERS: PCP Internal Medicine; Visit Provider Internal Medicine | DX: I25.708 Atherosclerosis of coronary artery bypass graft(s), unspecified, with other forms of angina pectoris (principal); K80.20 Calculus of gallbladder without cholecystitis without obstruction; E78.5 Hyperlipidemia, unspecified; I10 Essential (primary) hypertension; I73.9 Peripheral vascular disease, unspecified | CPT/HCPCS: 80053; 80061; 84443 ==

== ENCOUNTER → 2021-03-27 11:41 | Outpatient (BNVA) | payer MEDICAID, SELFPAY | PROVIDERS: PCP Internal Medicine; Visit Provider Surgery | DX: Z20.822 Contact with and (suspected) exposure to COVID-19 (principal) | CPT/HCPCS: 87635 ==

== ENCOUNTER 2021-04-01 11:33 | Day surgery (SDC) | payer MEDICAID, SELFPAY ==
[2021-03-31 17:43] VITALS: BMI 18.3
[2021-04-01] VITALS (18 sets, daily range): BP systolic 104–169; BP diastolic 42–72; PULSE 65–88; RESP 10–28; TEMP 36.3–37.2; O2SAT 94–100
--- NOTE | 2021-04-01 12:14 | W.PM.OPSUD ---
Surgery/Procedure H&P Update DATE OF PROCEDURE: April 01, 2021 DATE H&P PERFORMED: 03/14/21 H&P UPDATE INFORMATION: I have reviewed H&P completed within last 30 days, I have examined patient prior to procedure and No changes to prior documentation PREOP DIAGNOSIS: Cholelithiasis PLANNED PROCEDURE: Operation Date: 04/01/21 13:00 Proposed Procedures p Laparoscopic Cholecystectomy 74223 k80.20(Not Applicable) - Ernie Martinez MD
--- NOTE | 2021-04-01 12:50 | ANES.PREANE2 ---
Pre-Anesthetic Assessment Pre-Anesthetic Assessment: Height/Weight: Height 1.57 m Weight 45.359 kg Temp Pulse Resp BP Pulse Ox 98.9 F 88 18 104/46 97 04/01/21 12:27 04/01/21 12:27 04/01/21 12:27 04/01/21 12:27 04/01/21 12:27 Preop Diagnosis: Cholelithiasis Proposed Procedure: Operation Date: 04/01/21 13:00 Proposed Procedures p Laparoscopic Cholecystectomy 99794 k80.20(Not Applicable) - Ernie Martinez MD Was Beta Bill taken within 24 hours: N/A Was Clonidine taken within 24 hours: N/A Last intake: Intake Last Liquid Date 04/01/21 Last Liquid Time 07:00 Last Solid Date 03/31/21 Last Solid Time 17:00 Social: Social History: Tobacco and No alcohol Exam: Pre-Anes Outpt Exam: alert, oriented x 3, clear to auscultation bilaterally and regular rate & rhythm Airway: Submandibular: WNL Cervical ROM: WNL MP: 2 Dentition: False Pulmonary: Pulmonary: COPD CV/HEM: CV/HEM: CAD, CHF, HTN, DC, Murmur and PVD Comments: Functional status moderate GI: GI: GERD Anesthetic Plan: ASA status: 3 Anesthesia: General Risk of > 500 ml blood loss (7ml/kg in children): No PFSH Anesthesia PFSH: Medical History (Updated 03/14/21 @ 11:10 by Ernie Martinez MD) Anemia due to chronic illness CAD (coronary artery disease) Chronic combined systolic (congestive) and diastolic (congestive) heart failure Chronic obstructive pulmonary disease, unspecified Essential (primary) hypertension GERD (gastroesophageal reflux disease) History of cerebral artery occlusion History of myocardial infarct at age less than 60 years History of stroke History of TIA (transient ischemic attack) Hyperlipidemia, unspecified Hypothyroidism, unspecified Mitral valve prolapse Peripheral vascular disease, unspecified Vitamin deficiency, unspecified Surgical History (Updated 03/14/21 @ 11:10 by Ernie Martinez MD) History of cardiac catheterization History of colonoscopy 2020 History of coronary artery bypass graft History of esophagogastroduodenoscopy (EGD) Family History Other Cancer Social History Smoking and tobacco status: former smoker Second hand smoke exposure: No Alcohol intake: never Marital status: History of recent travel: No Current gender identity: Female Data Anesthesia Cardiac Studies: No Data to Display
[2021-04-01] MEDS: sodium chloride 0.9% 1,000 ML 30 ML IV (12:57)
[2021-04-01 13:14] LABS: Basophils % 0.2 %; Eosinophils # 0.2 10^3/uL (0.0-0.8); Eosinophils % 2.3 %; Hematocrit 39.6 % (37.0-47.0); Hemoglobin 13.3 g/dL (11.5-15.3); Lymphocytes # 2.4 10^3/uL (0.8-4.8); Lymphocytes % 23.9 %; Mean Corpuscular HGB Conc 33.6 g/dL (30.0-36.0); Mean Corpuscular Hemoglobin 31.7 pg (28.0-34.0); Mean Corpuscular Volume 94.5 fL (81-99); Mean Platelet Volume 9.8 fL (7.4-10.4); Monocytes # 0.8 10^3/uL (0.2-0.9); Monocytes % 7.4 %; Neutrophils # 6.73 10^3/uL (1.8-7.7); Neutrophils % 65.8 %; Nucleated Red Blood Cells % 0 %; Platelet Count 539 10^3/cmm (130-400); Red Blood Count 4.19 10^6/uL (4.1-5.3); Red Cell Distribution Width 14.2 % (12.1-15.1); White Blood Count 10.2 10^3/uL (4.0-10.0)
[2021-04-01] MEDS: clindamycin 600 MG/50 ML PREMIX 100 MG IV (13:26)
[2021-04-01 13:27] LABS: Anion Gap 16.6 (5-19); Blood Urea Nitrogen 21 mg/dL (6-20); Calcium 9.3 mg/dL (8.5-10.5); Carbon Dioxide 27 mmol/L (22-29); Chloride 96 mmol/L (98-107); Glomerular Filtration Rate 66.8 mL/min (90-130); Glucose 101 mg/dL (65-115); Osmolality Calculated 283 mOsm/kg (285-295); Potassium 4.6 mmol/L (3.5-5.1); Sodium 135 mmol/L (136-145)
--- NOTE | 2021-04-01 13:54 | PM.OP ---
Operative Report Date of procedure: April 01, 2021 Pre-op Diagnosis: Cholelithiasis Post-op diagnosis: same Procedure Done: Laparoscopic cholecystectomy Specimens removed/disposition: Gallbladder Surgeon: Ernie Martinez Anesthesia: General Condition: stable Disposition: PACU Procedure: The patient was taken to the operating room and was intubated under general anesthesia. After the antibiotic had been administered, the abdomen was prepped and draped in a sterile manner. Using a #15 blade, a 1 centimeter infraumbilical curvilinear incision was made and using an open Yesy technique the peritoneal cavity was entered. A 10 millimeter port was placed and 15 millimeters of pneumoperitoneum was created. A 10 millimeter, 30 degrees scope was then introduced. Three 5 millimeter ports were placed in the epigastric, midclavicular and the anterior axillary line two fingerbreadths below the costal margin on the right side under the direct visualization. The omentum was adherent to the fundus and the body of the gallbladder which was taken down using electrocautery. The gallbladder was distended and an aspirator needle was used to decompress the gallbladder. Ratcheted forceps were introduced into the lateral most port and was used to retract the fundus of the gallbladder cephalad and using forceps the infundibulum of the gallbladder was retracted laterally. Using L-hook cautery the peritoneum overlying the Calot's triangle was opened medially and laterally until the cystic duct and the cystic artery were skeletonized. Dissection was carried along the body of the gallbladder and after ensuring critical view of safety, 4 clips applied on the cystic duct and 3 clips applied on the cystic artery and cut leaving, 3 clips on the remaining portion of the duct and 2 clips on the remaining portion of the artery. The rest of the gallbladder was dissected off the liver using L-hook cautery. There was no bleeding or bile leaking noted from the gallbladder fossa and the clips appeared to be in place. An EndoCatch bag was introduced to remove the gallbladder. All the ports were removed under direct visualization and there was no bleeding noted from the port sites. The fascia of the umbilicus was closed using [id number] 0 Vicryl sutures and the subcutaneous tissue was approximated using 3-0 Vicryl sutures. The skin at all four ports were closed using 4-0 Monocryl and Dermabond. A total of 10 millimeters of 0.5% Marcaine was infiltrated around the port sites. The patient was stable throughout the procedure.
--- NOTE | 2021-04-01 13:58 | SUR.PHASEI ---
1356 PATIENT TO PACU FROM OR. RR EVEN AND UNLABORED. ORAL AIRWAY IN PLACE. SPO2 100% ON SIMPLE MASK AT 5L. 4 INCISIONS TO ABDOMEN, CDI.
--- NOTE | 2021-04-01 14:07 | SUR.PHASEI ---
1407 ORAL AIRWAY REMOVED. SPO2 100% ON RA.
[2021-04-01] MEDS: fentaNYL 50 mcg/mL INJ 2mL IVP ×2 (14:10→14:20)
[2021-04-01] MEDS: HYDROmorphone 1 mg/mL INJ 1 mL 0.5 MG IVP ×2 (14:27→14:37)
--- NOTE | 2021-04-01 14:27 | SUR.PHASEI ---
PER CATERINA BOYD TO GIVE DILAUDID. PT ALLERGIC TO MORPHINE. FENTANYL NOT RELIEVING PAIN.
--- NOTE | 2021-04-01 14:57 | ANE.PACU2 ---
Inpatient post-anesthesia follow up: Airway intact: Yes Vital signs: Temperature 98.8 F Pulse Rate 69 Respiratory Rate 13 Blood Pressure 143/42 Pulse Oximetry 97 Oxygen Delivery Me thod Room Air Oxygen Flow Rate 6 Fraction of Inspir ed Oxygen Hydration adequate: Yes Nausea and vomiting: No Pain level: 3 Mental status: Baseline Additional Comments: Difficult pain control
--- NOTE | 2021-04-01 15:01 | SUR.PHASEI ---
1451 PATIENT TO OPS. RR EVEN AND UNLABORED. ANESTHESIA AWARE OF LAST DOSE OF PAIN MEDICATION.
[2021-04-01] MEDS: oxyCODONE-APAP 10-325 mg Tablet 1 TAB PO (15:41)
== END 2021-04-01 16:36 | disposition home or self-care (01) ==
PROVIDERS: Anesthesiology; PCP Internal Medicine; Visit Provider Surgery
PROC: 0FT44ZZ Resection of Gallbladder, Percutaneous Endoscopic Approach (ICD-10-PCS; CPT 47562; principal; 2021-04-01 13:00)
DX: K80.10 Calculus of gallbladder with chronic cholecystitis without obstruction (principal); I25.10 Atherosclerotic heart disease of native coronary artery without angina pectoris; I11.0 Hypertensive heart disease with heart failure; I50.40 Unspecified combined systolic (congestive) and diastolic (congestive) heart failure; Z86.73 Personal history of transient ischemic attack (TIA), and cerebral infarction without residual deficits; E78.5 Hyperlipidemia, unspecified; E03.9 Hypothyroidism, unspecified; I25.2 Old myocardial infarction; Z87.891 Personal history of nicotine dependence; Z95.1 Presence of aortocoronary bypass graft
CPT/HCPCS: 47562; 36415; 80048; 85025; 88304; J1100; J1170; J2250; J2405; J2704; J2710; J3010; J3490; J7030

== ENCOUNTER 2021-05-12 09:36 | Outpatient (CLI) | payer MEDICAID, SELFPAY ==
--- NOTE | 2021-05-12 09:41 | XR_ITS ---
WS: [id number] ABDOMEN 2 VIEW(S) HISTORY: Mid to lower abdominal pain and constipation. COMPARISON: None available. Normal bowel gas pattern. Calcification projects over the RIGHT ilium is a soft tissue calcification within the posterior pelvi s as seen on a prior CT. Prior cholecystectomy. No bone abnormality. XR/XR abdomen min 2V [id number] IMPRESSION: 1. No free air or obstruction. 2. Prior cholecystectomy.
== END 2021-05-12 09:37 | disposition home or self-care (01) ==
PROVIDERS: PCP Internal Medicine; Visit Provider Surgery
DX: Z90.49 Acquired absence of other specified parts of digestive tract (principal); R10.9 Unspecified abdominal pain
CPT/HCPCS: 74019; 80053; 83690

== ENCOUNTER 2021-05-19 13:19 | Outpatient (CLI) | payer MEDICAID, SELFPAY ==
--- NOTE | 2021-05-19 13:23 | CT_ITS ---
WS: [id number] CT ANGIOGRAPHY abdomen and pelvis HISTORY: Bad vasculopath with pain after she eats. Gut angina? TECHNIQUE: CT angiogram is performed during IV injection. Reformation images reviewed. All CT scans a [facility] use at least one of these dose optimization techniques: automated exposure co ntrol; mA and/or kV adjustment per patient size (includes targeted exams where dose is matched to cli nical indication); or iterative reconstruction. CONTRAST: Visipaque 320; 95 mL IV. DLP: 493.91 mGy.cm COMPARISON: 04/30/2020 Prior CABG. Emphysematous changes at the lung bases. Mild enlargement of the heart. Abdominal aorta: Severe atherosclerotic plaque throughout the aorta. No aneurysm is identified. Heavy calcification continues into the iliac arteries bilaterally. There is a very high-grade stenosis inv olving the origin of the celiac axis. Essentially near complete occlusion. String sign is present. Th ere is a additional very dense calcified plaque throughout the SMA with high-grade stenosis at the or igin with extensive calcified plaque extending throughout the SMA. KATARINA is not visualized. Dense calci fication at the origins of the renal arteries. Mild RIGHT renal atrophy. There is still normal enhanc ement of the cortex of the kidneys. Prior cholecystectomy. Visualized liver and spleen are negative. Mild atrophy of the pancreas. No adr enal mass. No adenopathy or ascites. No GI tract obstruction. There is no ischemic disease or mucosal thickening or pneumatosis. There is extensive fecal retention throughout the distal colon. The appendix is normal. Heavy calcifications continue into the common iliac arteries bilaterally. Internal and external iliac arteries are small caliber and heavily calcified. 50% stenosis involving the LEFT proximal common fe moral artery. CT/CT angio abdomen pelvis [id number] IMPRESSION: 1. 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 2. Severe atherosclerotic disease with stenoses involving the SMA over multipl e centimeters. 3. Moderate stenosis involving the origins of the renal arteries. 4. Extensive atherosclerotic plaque within the aorta extending into the common and external iliac arteries with at least 50% stenosis involving the LEFT comm on femoral artery. 5. No pneumatosis or ischemic bowel disease at this time. 6. Prior cholecystectomy. 7. Marked constipation.
[2021-05-19] MEDS: iodixanol 320 mg/mL 100mL Btl IV (14:14)
== END 2021-05-19 13:20 | disposition home or self-care (01) ==
LOC: RAD 13:20
PROVIDERS: PCP Internal Medicine; Visit Provider Internal Medicine
DX: R10.13 Epigastric pain (principal); K59.00 Constipation, unspecified; Z90.49 Acquired absence of other specified parts of digestive tract; I70.0 Atherosclerosis of aorta; I70.1 Atherosclerosis of renal artery; I77.4 Celiac artery compression syndrome
CPT/HCPCS: 74174

== ENCOUNTER 2021-05-29 07:46 | Outpatient (CLI) | payer MEDICAID, SELFPAY ==
[2021-05-29 08:27] LABS: Alanine Aminotransferase 8 U/L (0-33); Albumin Level 4.3 g/dL (3.5-5.2); Alkaline Phosphatase 86 IU/L (35-105); Anion Gap 16.2 (5-19); Aspartate Amino Transferase 16 U/L (0-32); Blood Urea Nitrogen 18 mg/dL (6-20); Calcium 9.8 mg/dL (8.5-10.5); Carbon Dioxide 28 mmol/L (22-29); Chloride 99 mmol/L (98-107); Chol HDL Ratio 4.05 mg/dL (0.0-4.40); Cholesterol 166 mg/dL (0-200); Globulin 3.6 g/dL (1.3-4.6); Glomerular Filtration Rate 59.2 mL/min (90-130); Glucose 109 mg/dL (65-115); HDL Cholesterol 41 mg/dL (60-100); LDL Cholesterol Calculated 86 mg/dL (50-129); Osmolality Calculated 288 mOsm/kg (285-295); Potassium 5.2 mmol/L (3.5-5.1); Sodium 138 mmol/L (136-145); Total Bilirubin 0.5 mg/dL (0.15-1.2); Total Protein 7.9 g/dL (6.6-8.7); Triglycerides 197 mg/dL (0-150)
== END 2021-05-29 07:47 | disposition home or self-care (01) ==
LOC: LAB 07:53
PROVIDERS: PCP Internal Medicine; Visit Provider Internal Medicine Cardiovascular Disease
DX: E78.5 Hyperlipidemia, unspecified (principal)
CPT/HCPCS: 36415; 80053; 80061

== ENCOUNTER 2021-06-18 12:57 | Outpatient (CLI) | payer MEDICAID, SELFPAY ==
--- NOTE | 2021-06-18 13:08 | CT_ITS ---
WS: [id number] CT LUMBAR SPINE TECHNIQUE: Noncontrast CT of the lumbar spine with coronal and sagittal reformatted images. 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 DLP: 1536.[address] scans at [facility] use at least one of these dose optimization techniques: automated e xposure control; mA and/or kV adjustment per patient size (includes targeted exams where dose is matc hed to clinical indication); or iterative reconstruction. FINDINGS: Mild lumbar curve convex left. Disc space heights and vertebral body heights well-preserved. No acute compression fractures. No high-grade central canal stenosis. L1-L2: Normal. L2-L3: Normal. L3-L4: Small right foraminal protrusion with slight impingement exiting right right L3 nerve root. Mi ld right foraminal narrowing. Left foramen is patent. Narrowing of the right greater than left subart icular recess. Mild facet arthropathy. L4-L5: Mild annular bulging eccentric to the left. Slight narrowing of the left subarticular recess. Moderate left foraminal narrowing. Slight impingement on the exiting left L4 nerve root. Mild facet a rthropathy. L5-S1: Shallow right pericentral protrusion. This impinges the traversing right S1 nerve root in the subarticular recess. Recommend correlation right S1 nerve root symptoms. Foramen are patent. Adrenal glands are normal. CT/CT lumbar spine wo con* [id number] IMPRESSION: 1. Mild lumbar curve convex left. 2. Shallow right pericentral protrusion L5-S1 impinges the right traversing S1 nerve root in the subarticular recess. Recommend correlation right S1 nerve ro ot symptoms. 3. Moderate left L4-5 foraminal narrowing due to left eccentric disc osteophyt e complex. Recommend correlation left L4 nerve root symptoms. 4. Small right foraminal protrusion L3-4 with mild right foraminal narrowing.
--- NOTE | 2021-06-18 13:09 | XR_ITS ---
WS: [id number] LUMBAR SPINE FLEXION AND EXTENSION TECHNIQUE: 3 views of the lumbar spine: Lateral neutral, flexion, and extension views. 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 FINDINGS: Normal lumbar alignment on the neutral view. No instability on the flexion and extension views. Disc space heights and vertebral body heights are well preserved. Aortic calcification. Cholecystectomy clips. XR/XR lumbar spine f/e only [id number] IMPRESSION: No instability on flexion-extension
== END 2021-06-18 12:58 | disposition home or self-care (01) ==
PROVIDERS: PCP Internal Medicine; Visit Provider Anesthesiology Pain Medicine
DX: M47.816 Spondylosis without myelopathy or radiculopathy, lumbar region (principal); M51.27 Other intervertebral disc displacement, lumbosacral region; M51.26 Other intervertebral disc displacement, lumbar region
CPT/HCPCS: 72120; 72131

== ENCOUNTER 2021-10-11 10:43 | Outpatient (CLI) | payer MEDICAID, SELFPAY ==
[2021-10-11 10:59] LABS: Basophils % 0.3 %; Eosinophils # 0.1 10^3/uL (0.0-0.8); Hematocrit 28.8 % (37.0-47.0); Hemoglobin 9.4 g/dL (11.5-15.3); Lymphocytes # 1.1 10^3/uL (0.8-4.8); Lymphocytes % 17.8 %; Mean Corpuscular HGB Conc 32.6 g/dL (30.0-36.0); Mean Corpuscular Hemoglobin 30.6 pg (28.0-34.0); Mean Corpuscular Volume 93.8 fl (81-99); Mean Platelet Volume 9.2 fL (7.4-10.4); Monocytes # 0.4 10^3/uL (0.2-0.9); Neutrophils # 4.68 10^3/uL (1.8-7.7); Neutrophils % 73.7 %; Nucleated Red Blood Cells % 0 %; Platelet Count 477 10^3/cmm (130-400); Red Blood Count 3.07 10^6/uL (4.1-5.3); Red Cell Distribution Width 14.8 % (12.1-15.1); White Blood Count 6.4 10^3/uL (4.0-10.0)
== END 2021-10-11 10:44 | disposition home or self-care (01) ==
LOC: LAB 10:46
PROVIDERS: PCP Internal Medicine; Visit Provider Internal Medicine
DX: D64.9 Anemia, unspecified (principal)
CPT/HCPCS: 85025

== ENCOUNTER 2021-10-15 10:01 | Outpatient (CLI) | payer MEDICAID, SELFPAY | END 2021-10-15 10:02 | disposition home or self-care (01) | LOC: WOUND 10:06 | PROVIDERS: PCP Internal Medicine; Visit Provider Thoracic Surgery (Cardiothoracic Vascular Surgery) | DX: L89.152 Pressure ulcer of sacral region, stage 2 (principal); F17.210 Nicotine dependence, cigarettes, uncomplicated; J44.9 Chronic obstructive pulmonary disease, unspecified | CPT/HCPCS: 97597; 99213 ==